=== PATIENT | male | born 1940 | race Caucasian/White ===

== ENCOUNTER 2019-06-22 06:00 | Outpatient (RCR) | payer SELFPAY | END 2019-07-05 00:01 | LOC: SPT 06:00 | PROVIDERS: Family Provider Internal Medicine; Visit Provider Internal Medicine | DX: H81.10 Benign paroxysmal vertigo, unspecified ear (principal) | CPT/HCPCS: 95992; 97112; 97162 ==

== ENCOUNTER 2019-07-06 13:15 | Outpatient (RCR) | payer MEDICARE, OTHER, SELFPAY | END 2019-08-05 23:59 | disposition home or self-care (01) | LOC: SPT 13:15 | PROVIDERS: Family Provider Internal Medicine; PCP Internal Medicine; Visit Provider Internal Medicine | DX: H81.10 Benign paroxysmal vertigo, unspecified ear (principal) ==